=== PATIENT | female | born 1955 | race African-American/Black ===

== ENCOUNTER 2021-07-23 19:23 | Emergency (ER) | payer MEDICARE, OTHER ==
[~2021-07-23] VITALS: Ht 165.1 cm; Wt 98.0 kg
[~2021-07-23 19:23] MED LIST: AMOX-424 PO; ATOR10TA PO; CHOL100046 PO; HYDR-523 PO; LORA1TAB PO; OMEP20TA2 PO
[2021-07-23] MEDS ORDERED: ONDANSETRON HCL 4MG/2ML INJ IV STA (20:10)
[2021-07-23] MEDS ORDERED: MORPHINE SULFATE 4 MG/ML CPJ (NOT FOR IM USE) IV STA (20:10)
[2021-07-23] MEDS ORDERED: SODIUM CHLORIDE 0.9% 1,000 ML IV ONE (20:15)
[2021-07-23 21:56] LABS: BASOPHILS % 0.9 % (0.0-2.0); EOSINOPHILS % 0.4 % (0.0-5.0); HEMATOCRIT. 37.8 % (36.0-48.0); HEMOGLOBIN. 12.7 g/dL (12.0-16.0); LYMPHOCYTES % 24.7 % (20.0-50.0); MEAN CORPUSCULAR HEMOGLOBIN 25.7 pg (28.0-32.0); MEAN CORPUSCULAR VOLUME 76.7 fL (81.0-99.0); MEAN PLATELET VOLUME 7.9 fl (7.4-10.4); MONOCYTES % 4.4 % (2.0-8.0); NEUTROPHILS % 69.6 % (40.0-76.0); PLATELET 349 x1000/uL (130-400); RED BLOOD CELL COUNT 4.93 mill/uL (4.2-5.4); RED CELL DISTRIBUTION WIDTH 15.8 % (11.6-14.6)
[2021-07-23 22:02] LABS: CHLORIDE 110 mEq/L (98-107)
[2021-07-23] MEDS ORDERED: MORPHINE SULFATE 2 MG/ML CPJ (NOT FOR IM USE) IV NR (22:30)
[2021-07-24] MEDS ORDERED: MORPHINE SULFATE 4 MG/ML CPJ (NOT FOR IM USE) IV STA (00:51)
[2021-07-24 00:52] LABS: CLARITY URINE CLEAR (CLEAR); COLOR URINE YELLOW (YELLOW); KETONES URINE 2+ (NEGATIVE); LEUKOCYTE ESTERASE URINE NEGATIVE (NEGATIVE); NITRITE URINE NEGATIVE (NEGATIVE); OCCULT BLOOD URINE NEGATIVE (NEGATIVE); PH URINE 6.5 (4.5-8.0); PROTEIN URINE NEGATIVE (NEGATIVE); SPECIFIC GRAVITY URINE 1.012 (1.005-1.030)
[2021-07-24] MEDS ORDERED: CEFTRIAXONE 1 G PREMIX 50 ML IV ONE (01:00)
[2021-07-24] MEDS ORDERED: AZITHROMYCIN 500 MG TABLET PO ONE (01:00)
[2021-07-24] MEDS ORDERED: DOXY100C5 MT (01:36)
[2021-07-24] MEDS ORDERED: HYDR-4001 MT (01:36)
[2021-07-24 02:10] VITALS: BP 148/73
== END 2021-07-24 02:24 | disposition home or self-care (01) ==
LOC: ER 19:23
DX: N73.0 Acute parametritis and pelvic cellulitis (principal); N85.8 Other specified noninflammatory disorders of uterus; F41.9 Anxiety disorder, unspecified; K21.9 Gastro-esophageal reflux disease without esophagitis; Z90.49 Acquired absence of other specified parts of digestive tract; Z79.899 Other long term (current) drug therapy
CPT/HCPCS: 36415; 76830; 76856; 80053; 81003; 83690; 85025; 93005; 96361; 96365; 96375; 96376; 99285; J0696; J2270; J2405; J7030